=== PATIENT | female | born 1985 | race Caucasian/White ===

== ENCOUNTER 2016-12-11 16:56 | Emergency (ER) | payer OTHER ==
[~2016-12-11] VITALS: Ht 165.1 cm; Wt 81.8 kg
[~2016-12-11 16:56] MED LIST: DILA2TAB4 PO; IBUP600 PO; PROM25SU8 PO; TAB-TAB PO
[2016-12-11 16:58] VITALS: BP 136/82; PULSE 97; RESP 15; TEMP 98.3; O2SAT 96
[2016-12-11 17:34] VITALS: BP 113/78; PULSE 82; RESP 16; O2SAT 96
--- NOTE | 2016-12-11 17:35 | PD ---
HPI Chief Complaint: Complaint Time Seen by Provider: 17:35 Travel History International Travel<30 days: No Contact w/Intl Traveler<30days: No Traveled to known affect area: No History of Present Illness HPI 31-year-old female presents to ED for evaluation of 3 day history of increased urinary urgency, dysuria, hematuria, right-sided back pain and subjective fevers. She denies abdominal pain, nausea or vomiting. Denies recent sexual activity or new sexual partners. LMP "about 10 days ago." Denies recent . The patient states she has history of chronic UTIs, states current symptoms are very similar. Denies chronic health problems. Takes no daily medications. NKDA. PFSH Past Medical History Anxiety: Yes Depression: Yes Influenza Vaccination: No ?: Not LMP: 12/04/16 : 0 Past Surgical History Cholecystectomy: Yes Social History Alcohol Use: Yes (SOCIALLY) Tobacco Use: Yes (1/2PPD) Substance Use: No Allergies-Medications (Allergen,Severity, Reaction): Coded Allergies: Morphine (Verified Allergy, Severe, Anaphylaxis, 12/11/16) Zithromax (Verified Allergy, Severe, Anaphylaxis, 12/11/16) Sulfa (Verified Allergy, Unknown, Anaphylaxis, 12/11/16) Reported Meds & Prescriptions Reported Meds & Active Scripts Active Cipro (Ciprofloxacin HCl) 500 Mg Tab 500 Mg PO BID Reported Ibuprofen 200 Mg Cap 600 Mg PO Q8HR PRN Review of Systems Except as stated in HPI: all other systems reviewed are Neg Physical Exam Narrative GENERAL: Well-nourished, well-developed pleasant white female in no acute distress. SKIN: Warm and dry. Tattoos. HEAD: Normocephalic. EYES: No scleral icterus. No injection or drainage. NECK: Supple, trachea midline. No JVD or lymphadenopathy. CARDIOVASCULAR: Regular rate and rhythm without murmurs, gallops, or rubs. RESPIRATORY: Breath sounds clear and equal bilaterally. No accessory muscle use. GASTROINTESTINAL: Abdomen soft, non-tender, nondistended. Mild suprapubic tenderness. Active bowel sounds. MUSCULOSKELETAL: No cyanosis, or edema. BACK: Nontender without obvious deformity. ++ Right-sided CVA tenderness. Data Data Last Documented VS Vital Signs Date Time Temp Pulse Resp B/P Pulse Ox O2 Delivery O2 Flow Rate FiO2 12/11/16 17:34 82 16 113/78 96 Room Air 12/11/16 16:58 98.3 Orders Urinalysis - C+S If Indicated (12/11/16 17:05) Ed Urine Pregnancytest Poc (12/11/16 17:05) Urine Culture (12/11/16 17:10) Ciprofloxacin (Cipro) (12/11/16 18:15) Labs Laboratory Tests Test 12/11/16 17:10 Urine Color LIGHT-YELLOW Urine Turbidity CLEAR Urine pH 5.5 Urine Specific [place] 1.005 Urine Protein NEG mg/dL Urine Glucose (UA) NEG mg/dL Urine Ketones NEG mg/dL Urine Occult Blood TRACE Urine Nitrite NEG Urine Bilirubin NEG Urine Urobilinogen LESS THAN 2.0 MG/DL Urine Leukocyte Esterase LARGE Urine RBC 2 /hpf Urine WBC 21 /hpf Urine Squamous Epithelial 1 /hpf Cells Urine Bacteria RARE /hpf Urine Yeast (Budding) OCC Microscopic Urinalysis Comment CULTURE INDICATED MDM Medical Decision Making Medical Screen Exam Complete: Yes Emergency Medical Condition: Yes Medical Record Reviewed: Yes (previous UTI grew Proteus mirabilis, resistant to Macrobid) Differential Diagnosis Cystitis versus pyelonephritis versus STI Narrative Course 31-year-old female with history of chronic UTI presents to the ED for evaluation of 3 day history of increased urinary frequency, dysuria, hematuria, right-sided back pain and subjective fever and chills. No abdominal pain, nausea or vomiting. Patient states these symptoms are similar to previous episodes of UTI. She endorses recent treatment for yeast infection. Vitals reviewed. Physical exam reveals a nontoxic-appearing white female in no acute distress. Mild suprapubic tenderness and positive right-sided CVA tenderness, otherwise unremarkable. UA light yellow with trace occult blood, large leukocyte esterase, 21 WBCs, rare bacteria and occasional yeast. This is pyelonephritis. We'll prescribe Cipro, 500 mg twice a day times 7 days. Patient states she recently treated for yeast infection. I advised her that symptoms may persist for 5-7 days posttreatment. If symptoms persist beyond this time, second treatment may be required. Recommend follow up with the pulverizing and sifting operator. We discussed reasons to return to the ED. She indicated understanding of the instructions, is amenable to plan of care. She stable and discharged home. Diagnosis Primary Impression: Pyelonephritis Additional Impression: Hematuria Referrals: Wholesale Buyer Primary Care Physician Patient Instructions: General Instructions, Urinary Tract Infection in Women ( ED) Additional Instructions: Rest, hydrate. Take all medication as prescribed, even if symptoms resolve. Follow-up with the primary care provider and pulverizing and sifting operator as discussed. Return to the ED for any urgent or emergent medical condition. Med/Other Pt SpecificInfo: Prescription(s) given Scripts Ciprofloxacin (Cipro)500 Mg [id number] Mg PO BID #14 TAB Ref 0 Prov:Walker Petersen MD 12/11/16 Disposition: 01 DISCHARGE HOME Condition: Stable Samina Cuellar Dec 11, 2016 17:35
[2016-12-11] MEDS ORDERED: IBUP200C PO (17:36)
[2016-12-11 17:37] LABS: BACTERIA, URINE RARE /hpf; BLOOD, URINE TRACE (NEG); COMMENT (UR) CULTURE INDICATED; CULTURE IF INDICATED CULTURE INDICATED; GLUCOSE,URINE NEG (NEG); KETONE, URINE NEG (NEG); NITRITE,URINE NEG (NEG); PH, URINE 5.5 (5.0-8.5); SQUAMOUS EPITHELIAL CELL URINE 1 /hpf (0-5); URINE COLOR LIGHT-YELLOW (YELLW/STRAW)
[2016-12-11] MEDS ORDERED: CIPR-9 PO (18:06)
[2016-12-11] MEDS ORDERED: CIPROFLOXACIN 500 MG TAB PO ONE (18:15)
== END 2016-12-11 18:22 | disposition home or self-care (01) ==
LOC: NEPA 16:56
DX: N12 Tubulo-interstitial nephritis, not specified as acute or chronic (principal); B96.89 Other specified bacterial agents as the cause of diseases classified elsewhere; R31.9 Hematuria, unspecified
CPT/HCPCS: 81001; 84703; 87077; 87086; 87186; 99283

== ENCOUNTER 2016-12-30 11:35 | Emergency (ER) | payer OTHER ==
[~2016-12-30 11:35] MED LIST changes: +CIPR-9 PO; -DILA2TAB4 PO; +IBUP200C PO; -IBUP600 PO; -PROM25SU8 PO; -TAB-TAB PO
[2016-12-30 11:38] VITALS: BP 125/71; PULSE 99; RESP 22; TEMP 98.1; O2SAT 100
[2016-12-30 11:39] VITALS: BP 130/80; PULSE 114; RESP 24; TEMP 98; O2SAT 98
--- NOTE | 2016-12-30 12:06 | PD ---
HPI Chief Complaint: Anxiety Time Seen by Provider: 11:50 Travel History International Travel<30 days: No Contact w/Intl Traveler<30days: No Traveled to known affect area: No History of Present Illness HPI 31-year-old female presents via EMS for evaluation of chest pressure. Symptoms started prior to arrival while she was getting ready for work. She describes it as a pressure in the center of the chest that is worse when she is breathing or with palpation of the chest wall. The pain does not radiate anywhere else. She does endorse some shortness of breath as well. She says that 3 days ago she was diagnosed with a "sinus infection" and prescribed prednisone and Augmentin which she has been taking as prescribed. She does endorse a dry cough as well. Denies any nausea, vomiting, abdominal pain, flank pain, fevers or chills, recent travel, Swelling, recent surgery. She endorses tobacco use. Denies any oral contraceptive use. No history of hypertension, hyperlipidemia, diabetes, aortic aneurysm, connective tissue disorder, hypercoagulopathy. She has no other complaints at this time. [facility] Past Medical History Anxiety: Yes Depression: Yes : 0 Past Surgical History Cholecystectomy: Yes Social History Alcohol Use: Yes (SOCIALLY) Tobacco Use: Yes (1/2PPD) Substance Use: No Allergies-Medications (Allergen,Severity, Reaction): Coded Allergies: Morphine (Verified Allergy, Severe, Anaphylaxis, 12/30/16) Zithromax (Verified Allergy, Severe, Anaphylaxis, 12/30/16) Sulfa (Verified Allergy, Unknown, Anaphylaxis, 12/30/16) Reported Meds & Prescriptions Reported Meds & Active Scripts Active Cipro (Ciprofloxacin HCl) 500 Mg Tab 500 Mg PO BID Reported Amoxicillin-Clavulanate 875-125 mg Tab 875 Mg PO BID not for use in CrCl <30 mL/minute Prednisone (21) 10 mg tab Dose Pack (Prednisone) 10 Mg Pack Unknown Dose PO DIRECTED Ibuprofen 200 Mg Cap 600 Mg PO Q8HR PRN Review of Systems Except as stated in HPI: all other systems reviewed are Neg Physical Exam Narrative GENERAL: Well-developed well-nourished female in no acute distress. She appears anxious. SKIN: Warm and dry. No rash. HEAD: Atraumatic. Normocephalic. EYES: Pupils equal and round. No scleral icterus. No injection or drainage. ENT: No nasal bleeding or discharge. Mucous membranes pink and moist. NECK: Trachea midline. No JVD. CARDIOVASCULAR: Regular rate and rhythm. No murmur appreciated. RESPIRATORY: No accessory muscle use. Clear to auscultation. Breath sounds equal bilaterally. GASTROINTESTINAL: Abdomen soft, non-tender, nondistended. Hepatic and splenic margins not palpable. MUSCULOSKELETAL: No obvious deformities. Tenderness to palpation to the left chest wall. There is no lower extremity edema. NEUROLOGICAL: Awake and alert. No obvious cranial nerve deficits. Motor grossly within normal limits. Normal speech. Data Data Last Documented VS Vital Signs Date Time Temp Pulse Resp B/P Pulse Ox O2 Delivery O2 Flow Rate FiO2 12/30/16 11:39 98.0 114 24 130/80 98 Orders Electrocardiogram (12/30/16 ) Chest, Single Ap (12/30/16 ) Ed Urine Pregnancytest Poc (12/30/16 12:03) Complete Blood Count With Diff (12/30/16 12:03) Basic Metabolic Panel (Bmp) (12/30/16 12:03) Ketorolac Inj (Toradol Inj) (12/30/16 12:15) Lorazepam Inj (Ativan Inj) (12/30/16 12:15) Labs Laboratory Tests Test 12/30/16 12:00 White Blood Count 12.0 TH/MM3 Red Blood Count 4.82 MIL/MM3 Hemoglobin 14.7 GM/DL Hematocrit 42.7 % Mean Corpuscular Volume 88.7 FL Mean Corpuscular Hemoglobin 30.5 PG Mean Corpuscular Hemoglobin 34.4 % Concent Red Cell Distribution Width 14.6 % Platelet Count 318 TH/MM3 Mean Platelet Volume 7.2 FL Neutrophils (%) (Auto) 87.2 % Lymphocytes (%) (Auto) 9.2 % Monocytes (%) (Auto) 3.0 % Eosinophils (%) (Auto) 0.4 % Basophils (%) (Auto) 0.2 % Neutrophils # (Auto) 10.5 TH/MM3 Lymphocytes # (Auto) 1.1 TH/MM3 Monocytes # (Auto) 0.4 TH/MM3 Eosinophils # (Auto) 0.0 TH/MM3 Basophils # (Auto) 0.0 TH/MM3 CBC Comment DIFF FINAL Differential Comment Sodium Level 139 MEQ/L Potassium Level 3.6 MEQ/L Chloride Level 109 MEQ/L Carbon Dioxide Level 22.9 MEQ/L Anion Gap 7 MEQ/L Blood Urea Nitrogen 4 MG/DL Creatinine 0.95 MG/DL Estimat Glomerular Filtration 68 ML/MIN Rate Random Glucose 85 MG/DL Calcium Level 8.4 MG/DL [facility] Medical Decision Making Medical Screen Exam Complete: Yes Emergency Medical Condition: Yes Medical Record Reviewed: Yes Interpretation(s) EKG reveals sinus rhythm, nonspecific T-wave changes in the inferior leads Chest x-ray CONCLUSION: Minimal parenchymal changes left base. This could be an early inflammatory process. CBC WBC 12 otherwise unremarkable Differential Diagnosis Costochondritis, pleurisy, pericarditis, myocarditis, acute coronary syndrome, aortic dissection, pulmonary embolism, spontaneous pneumothorax, anxiety Narrative Course 31-year-old female who has had a cough, sinus infection for the past several days presents now with substernal chest pressure that is reproduced with breathing, palpation of the chest wall. On examination she appears anxious and she has reproducible tenderness to palpation of the chest wall. I suspect that her pain is musculoskeletal in etiology. Pulmonary embolism was considered in the differential however she does not appear to have any risk factors. Acute coronary syndrome was considered in the differential in this young healthy patient as well. Plan is for basic lab work, chest x-ray, EKG. The patient be given Toradol and Ativan. Discussed with my attending who is agreeable with plan of care. 1325: Upon examination the patient feels much better, less anxious, no chest pain. She is still somewhat tachycardic. Her lab work and imaging studies are reassuring. The patient is counseled on discontinuing her prednisone as this could be causing some of her anxiety and tachycardia. She is encouraged to continue using the Augmentin and she can take Tylenol or Motrin if the chest wall discomfort returns. She is encouraged to return here for any new or worsening symptoms. All questions have been answered and she is stable for discharge. Procedures EKG Prior to Arrival: Yes Diagnosis Primary Impression: Chest wall pain Additional Instructions: Continue the Augmentin. Quit taking prednisone. Take Tylenol or Motrin for discomfort. Stay well hydrated well-nourished. Follow-up with primary care physician and return for any worsening symptoms. Med/Other Pt SpecificInfo: No Change to Meds Disposition: 01 DISCHARGE HOME Condition: Stable George Martinez Dec 30, 2016 12:06
[2016-12-30] MEDS ORDERED: KETOROLAC TROMETHAMINE 30 MG/ML (IVP) VIAL IV PUSH ONE (12:15)
[2016-12-30] MEDS ORDERED: LORazepam 2 MG/ML VIAL IV PUSH ONE (12:15)
[2016-12-30 12:30] LABS: AUTOMATED NEUTROPHIL # 10.5 TH/MM3 (1.8-7.7); BASOPHIL % 0.2 % (0.0-2.0); EOSINOPHIL % 0.4 % (0.0-4.0); HEMATOCRIT 42.7 % (35.0-46.0); HEMO FLAGS DIFF FINAL; LYMPH % 9.2 % (9.0-44.0); LYMPHOCYTE # 1.1 TH/MM3 (1.0-4.8); MEAN CELL VOLUME 88.7 FL (80.0-100.0); MEAN CORPUSCULAR HEMOGLOBIN 30.5 PG (27.0-34.0); MEAN CORPUSCULAR HGB CONC 34.4 % (32.0-36.0); NEUT % 87.2 % (16.0-70.0); PLATELET COUNT 318 TH/MM3 (150-450); RED BLOOD COUNT 4.82 MIL/MM3 (4.00-5.30); RED CELL DISTRIBUTION WIDTH 14.6 % (11.6-17.2)
[2016-12-30 12:40] LABS: BICARBONATE 22.9 MEQ/L (21.0-32.0); POTASSIUM 3.6 MEQ/L (3.5-5.1)
[2016-12-30] MEDS ORDERED: AMOX875T2 PO (12:45)
[2016-12-30] MEDS ORDERED: PRED10PA PO (12:45)
--- NOTE | 2016-12-30 13:17 | RADRPT ---
EXAM DATE/TIME: 12/30/2016 12:09 [facility] COMPARISON: No previous studies available for comparison. INDICATIONS : Cough. Shortness of breath MEDICAL HISTORY : None. SURGICAL HISTORY : None. ENCOUNTER: Initial ACUITY: 1 day PAIN SCORE: 0/10 LOCATION: Bilateral chest FINDINGS: There are very minimal parenchymal changes present in the left base. The right lung is clear . Heart and pulmonary vascularity are normal. Portion of bony skeleton visualized unremarkable. CONCLUSION: Minimal parenchymal changes left base. This could be an early inflammatory process. Ihsan Pinto MD FACR on December 30, 2016 at 13:04 Board Certified Radiologist. This report was verified electronically.
--- NOTE | 2016-12-31 13:01 | EKG ---
Date Performed: 12/30/2016 Time Performed: 11:46:28 PTAGE: 31 years EKG: Sinus rhythm LOW QRS VOLTAGE IN PRECORDIAL LEADS NONSPECIFIC T-WAVE ABNORMALITY ABNORMAL ECG NO PREVIOUS TRACING DOCTOR: Liu Tucker Interpretating Date/Time 12/31/2016 12:58:56
== END 2016-12-30 14:05 | disposition home or self-care (01) ==
LOC: NETRI 11:35
DX: R07.89 Other chest pain (principal); R94.31 Abnormal electrocardiogram [ECG] [EKG]; F17.210 Nicotine dependence, cigarettes, uncomplicated; R05 Cough
CPT/HCPCS: 71010; 80048; 84703; 85025; 93005; 96374; 96375; 99285; J1885; J2060

== ENCOUNTER 2017-05-16 13:41 | Emergency (ER) | payer OTHER ==
[~2017-05-16] VITALS: Ht 165.1 cm; Wt 80.0 kg
[~2017-05-16 13:41] MED LIST changes: +AMOX875T2 PO; +PRED10PA PO
[2017-05-16 13:43] VITALS: BP 135/92; PULSE 97; RESP 18; TEMP 98.2; O2SAT 100
--- NOTE | 2017-05-16 14:22 | PD ---
HPI Chief Complaint: Injury Time Seen by Provider: 14:00 Travel History International Travel<30 days: No Contact w/Intl Traveler<30days: No Traveled to known affect area: No History of Present Illness HPI 31-year-old female presents emergency department for evaluation of right elbow pain status post fall. Patient reports that while walking out of a grocery store she slipped and fell landing onto the right elbow. She denies head injury. No loss of consciousness. She has no other pain. The pain is localized within the right elbow, nonradiating, worse with full extension, relieved with rest, severity 6 out of 10. She denies numbness or tingling within the extremity. PFSH Past Medical History Anxiety: Yes Depression: Yes Tetanus Vaccination: < 5 Years Influenza Vaccination: No ?: Not LMP: 05/09/2017 : 0 Past Surgical History Cholecystectomy: Yes Social History Alcohol Use: Yes (SOCIALLY) Tobacco Use: Yes (1/2PPD) Substance Use: No Allergies-Medications (Allergen,Severity, Reaction): Coded Allergies: Morphine (Verified Allergy, Severe, Anaphylaxis, 05/16/17) Zithromax (Verified Allergy, Severe, Anaphylaxis, 05/16/17) Sulfa (Verified Allergy, Unknown, Anaphylaxis, 05/16/17) Reported Meds & Prescriptions Reported Meds & Active Scripts Active Reported Ibuprofen 200 Mg Cap 600 Mg PO Q8HR PRN Review of Systems Except as stated in HPI: all other systems reviewed are Neg General / Constitutional: No: Fever HENT: No: Headaches Cardiovascular: No: Chest Pain or Discomfort Respiratory: No: Shortness of Breath Musculoskeletal: Positive: Other (right elbow pain) Physical Exam Narrative GENERAL: Alert, well-appearing female no acute distress. SKIN: Focused skin assessment warm/dry. No abrasions or ecchymosis. HEAD: Atraumatic. Normocephalic. EYES: Pupils equal and round. No scleral icterus. No injection or drainage. ENT: No nasal bleeding or discharge. Mucous membranes pink and moist. NECK: Trachea midline. No JVD. No cervical midline tenderness. CARDIOVASCULAR: Regular rate and rhythm. No murmur appreciated. No chest wall or rib tenderness. RESPIRATORY: No accessory muscle use. Clear to auscultation. Breath sounds equal bilaterally. GASTROINTESTINAL: Abdomen soft, non-tender, nondistended. Hepatic and splenic margins not palpable. MUSCULOSKELETAL: No obvious deformities. No clubbing. No cyanosis. No edema. Right elbow: Point tenderness over the lateral epicondyle. No joint effusion or deformity. Full range of motion. Patient has pain with full extension. Extremities neurovascularly intact. 2+ distal pulses. NEUROLOGICAL: Awake and alert. No obvious cranial nerve deficits. Motor grossly within normal limits. Normal speech. PSYCHIATRIC: Appropriate mood and affect; insight and judgment normal. Data Data Last Documented VS Vital Signs Date Time Temp Pulse Resp B/P Pulse Ox O2 Delivery O2 Flow Rate FiO2 05/16/17 13:52 Room Air 05/16/17 13:43 98.2 97 18 135/92 100 Orders Elbow, Complete (4 Vws) (05/16/17 ) [facility] Medical Decision Making Medical Screen Exam Complete: Yes Emergency Medical Condition: Yes Differential Diagnosis Right elbow painsprain versus contusion versus fracture Narrative Course 31-year-old female since emergency department for evaluation of right elbow pain status post fall prior to arrival. On exam patient has point tenderness over the lateral epicondyle. No deformity noted. Full range of motion. X-ray pending X-ray of right elbow negative for fracture. Patient will be treated for elbow contusion. Given arm sling for comfort. Instructed to take [id number] ibuprofen as needed for pain. Diagnosis Primary Impression: Contusion, elbow Qualified Code: S50.01XA - Contusion of right elbow, initial encounter Referrals: Primary Care Physician Additional Instructions: Use the arm sling as needed for comfort. Use [id number] Motrin as needed for pain. Ice and elevate the extremity. Follow-up with her primary care doctor for recheck this week. Disposition: 01 DISCHARGE HOME Condition: Stable DashaLiz WONG May 16, 2017 14:22
--- NOTE | 2017-05-16 14:40 | RADRPT ---
EXAM DATE/TIME: 05/16/2017 14:23 [facility] COMPARISON: No previous studies available for comparison. INDICATIONS : Right elbow pain post fall. Pain is worse with extension. MEDICAL HISTORY : Smoker. SURGICAL HISTORY : Cholecystectomy. Left knee surgeries x 6. ENCOUNTER: Initial ACUITY: 1 day PAIN SCORE: 6/10 LOCATION: Right elbow FINDINGS: Multiple view examination of the right elbow demonstrates no soft tissue swelling, joint effusion, or fracture. The osseous structures are in normal alignment. Bony mineralization is normal. CONCLUSION: Unremarkable examination of the right elbow. Matthieu Cooley MD on May 16, 2017 at 14:38 Board Certified Radiologist. This report was verified electronically.
== END 2017-05-16 14:57 | disposition home or self-care (01) ==
LOC: PHEFT 13:41
DX: S50.01XA Contusion of right elbow, initial encounter (principal); F17.210 Nicotine dependence, cigarettes, uncomplicated; W01.0XXA Fall on same level from slipping, tripping and stumbling without subsequent striking against object, initial encounter; Y93.01 Activity, walking, marching and hiking; Y92.512 Supermarket, store or market as the place of occurrence of the external cause
CPT/HCPCS: 73080; 99283

== ENCOUNTER 2017-06-21 15:01 | Emergency (ER) | payer OTHER ==
[~2017-06-21 15:01] MED LIST changes: -AMOX875T2 PO; -CIPR-9 PO; -PRED10PA PO
[2017-06-21 15:03] VITALS: BP 133/85; PULSE 93; RESP 16; TEMP 98.3; O2SAT 98
[2017-06-21 15:11] VITALS: BP 115/61; PULSE 62; RESP 16; TEMP 97.9; O2SAT 99
--- NOTE | 2017-06-21 15:26 | PD ---
Physical Exam Time Seen by Provider: 15:24 Narrative 31yo F c/o blood and pus coming from belly button x 4 days. +painful. Denies fever, vomiting. Patient seen in triage. VS reviewed. Patient awaiting bed placement. Data Data Last Documented VS Vital Signs Date Time Temp Pulse Resp B/P Pulse Ox O2 Delivery O2 Flow Rate FiO2 06/21/17 15:03 98.3 93 16 133/85 98 MDM Supervised Visit with RANJITH: Nanda Gross Jun 21, 2017 15:25
[2017-06-22] MEDS ORDERED: IBUP800T23 PO (08:56)
[2017-06-22] MEDS ORDERED: CLIN1CAP5 PO (08:56)
== END 2017-06-21 19:18 | disposition left against medical advice (07) ==
LOC: NED 15:01
DX: R10.9 Unspecified abdominal pain (principal)
CPT/HCPCS: 99281

== ENCOUNTER 2017-06-22 08:17 | Emergency (ER) | payer OTHER ==
[~2017-06-22] VITALS: Ht 165.1 cm; Wt 75.0 kg
[2017-06-22 08:19] VITALS: BP 146/90; PULSE 100; RESP 20; TEMP 97.8; O2SAT 99
[2017-06-22] MEDS ORDERED: CLIN1CAP5 PO (08:56)
[2017-06-22] MEDS ORDERED: IBUP800T23 PO (08:56)
--- NOTE | 2017-06-22 08:57 | PD ---
HPI Chief Complaint: Skin Problem Time Seen by Provider: 08:54 Travel History International Travel<30 days: No Contact w/Intl Traveler<30days: No Traveled to known affect area: No History of Present Illness HPI 31-year-old female presents to the emergency Department with complaint of redness, drainage, and pain to her umbilicus 5 days. Denies fever, vomiting. Has tried cleaning the area for symptomatic management. Symptoms are mild. Has no other medical complaints. Allergies to morphine, sulfa, Zithromax. No other modifying factors or associated signs and symptoms. PFSH Past Medical History Anxiety: Yes Depression: Yes ?: Not LMP: 06/20/17 : 0 Past Surgical History Cholecystectomy: Yes Social History Alcohol Use: Yes (SOCIALLY) Tobacco Use: Yes (1/2PPD) Substance Use: No Allergies-Medications (Allergen,Severity, Reaction): Coded Allergies: Morphine (Verified Allergy, Severe, Anaphylaxis, 06/22/17) Zithromax (Verified Allergy, Severe, Anaphylaxis, 06/22/17) Sulfa (Verified Allergy, Unknown, Anaphylaxis, 06/22/17) Reported Meds & Prescriptions Reported Meds & Active Scripts Active Ibuprofen 800 Mg Tab 800 Mg PO Q6HR PRN Clindamycin (Clindamycin HCl) 150 Mg Cap 300 Mg PO Q6H 10 Days Reported Ibuprofen 200 Mg Cap 600 Mg PO Q8HR PRN Review of Systems Except as stated in HPI: all other systems reviewed are Neg Physical Exam Narrative GENERAL: Well-nourished, well-developed female patient, in no acute distress; afebrile, nontoxic-appearing SKIN: Warm and dry. Umbilicus with minimal erythema; minimal amount of purulent drainage noted; but tenderness on palpation; no palpable lump. HEAD: Atraumatic. Normocephalic. EYES: Pupils equal and round. No scleral icterus. No injection or drainage. ENT: Mucosa pink and moist. Airway patent. NECK: Trachea midline. CARDIOVASCULAR: Regular rate. RESPIRATORY: No accessory muscle use. GASTROINTESTINAL: Rounded. MUSCULOSKELETAL: No obvious deformities. No clubbing. No cyanosis. No edema. NEUROLOGICAL: Awake and alert. Oriented 3. No obvious cranial nerve deficits. Motor grossly within normal limits. Normal speech. PSYCHIATRIC: Appropriate mood and affect; insight and judgment normal. Data Data Last Documented VS Vital Signs Date Time Temp Pulse Resp B/P Pulse Ox O2 Delivery O2 Flow Rate FiO2 06/22/17 08:19 97.8 100 20 146/90 99 Room Air Orders Wound Culture And Gram Stain (06/22/17 08:57) [facility] Medical Decision Making Medical Screen Exam Complete: Yes Emergency Medical Condition: Yes Medical Record Reviewed: Yes Differential Diagnosis Umbilical cellulitis, abscess, folliculitis Narrative Course 31-year-old female physical exam consistent with cellulitis of the umbilicus. Patient is afebrile and nontoxic-appearing. She denies fever, vomiting. There is a minimal amount of purulent drainage noted; wound culture pending. Clindamycin and ibuprofen prescribed for home. Instructed patient to follow up with primary care provider. Patient verbalizes understanding and agreement with treatment plan. Patient is medically cleared and stable for discharge. Discussed reasons to return to the emergency department. Patient agrees with treatment plan. The patients vital signs are stable and the patient is stable for outpatient follow-up and treatment. Patient discharged home, stable and in no acute distress. Diagnosis Primary Impression: Cellulitis of umbilicus Referrals: Primary Care Physician Patient Instructions: Cellulitis (ED), General Instructions Departure Forms: Tests/Procedures, Work Release Enter return to work date: Jun 23, 2017 Additional Instructions: Complete full course of antibiotics Warm compresses to the affected area Keep area clean and dry Ibuprofen or Tylenol as directed and as needed for pain and inflammation Follow-up with primary care provider Return to emergency department immediately with worsening of symptoms Med/Other Pt SpecificInfo: Prescription(s) given Scripts Ibuprofen 800 Mg [id number] Mg PO Q6HR PRN (PAIN) #30 TAB Ref 0 Prov:Nanda Oh 06/22/17 Clindamycin 150 Mg [id number] Mg PO Q6H 10 Days Ref 0 Prov:Nanda hO 06/22/17 Disposition: 01 DISCHARGE HOME Condition: Stable Nanda Oh Jun 22, 2017 08:56
== END 2017-06-22 09:11 | disposition home or self-care (01) ==
LOC: NEPK 08:17
DX: L03.316 Cellulitis of umbilicus (principal); F41.9 Anxiety disorder, unspecified; F32.9 Major depressive disorder, single episode, unspecified; F17.200 Nicotine dependence, unspecified, uncomplicated; Z79.899 Other long term (current) drug therapy
CPT/HCPCS: 86403; 87070; 87205; 99283